=== PATIENT | female | born 1980 | race Caucasian/White ===

== ENCOUNTER → 2020-03-22 | Outpatient (CLI) | payer BC ==
[~2020-03-22] MED LIST: CIPR500 PO; HYDACE5 PO; IBUP800; IBUP800 PO; OMEP20ER PO; OXYACE5T; PRENATAL PO; SULTRIDS PO
== END ==
LOC: LAB EV 12:30 → LAB SHORT 12:30
DX: R05 Cough (principal); Z20.828 Contact with and (suspected) exposure to other viral communicable diseases
CPT/HCPCS: U0003

== ENCOUNTER → 2022-11-05 | Outpatient (CLI) | payer OTHER ==
[2022-11-05 19:57] LABS: Percent Saturation 29.1 % (15.0-50.0)
== END | disposition home or self-care (01) ==
LOC: LAB SHORT 14:04 → LAB 14:04
PROVIDERS: Internal Medicine Hematology & Oncology
DX: D50.0 Iron deficiency anemia secondary to blood loss (chronic) (principal); D51.8 Other vitamin B12 deficiency anemias
CPT/HCPCS: 82607; 82728; 82746; 83540; 83550